=== PATIENT | male | born 1985 | race Two or more races ===

== ENCOUNTER 2021-12-18 16:22 | Emergency (ER) | payer SELFPAY ==
[~2021-12-18] VITALS: Ht 182.9 cm; Wt 93.1 kg
[2021-12-18 16:36] VITALS: BP 136/79
[2021-12-18 17:43] LABS: Basophils # (auto) 0.1 10 ^3/uL (0-0.2); Basophils % (auto) 0.5 % (0.0-2.0); Eosinophils # (auto) 0.2 10 ^3/uL (0-0.8); Eosinophils % (auto) 1.5 % (0.0-7.0); Hematocrit 45.6 % (41.0-53.0); Hemoglobin 15.1 g/dL (13.5-17.5); Lymphocytes # (auto) 2.5 10 ^3/uL (0.4-5.4); Lymphocytes % (auto) 21.7 % (10.0-50.0); Mean Corpuscular Hemoglobin 29.7 pg (28.0-32.0); Mean Corpuscular Hgb Conc. 33.2 g/dL (32.0-36.0); Mean Corpuscular Volume 89.5 fL (80.0-100.0); Monocytes % (auto) 8.2 % (0.0-12.0); Neutrophils % (auto) 68.1 % (37.0-80.0); Red Cell Distribution Width 13.5 % (11.8-14.3); White Blood Cell 11.7 10^3/uL (4.4-10.8)
[2021-12-18 17:51] LABS: Urine Bacteria NONE SEEN /hpf (None Seen); Urine Blood 1+ /uL (Negative); Urine Mucus FEW (None Seen); Urine Specific Gravity 1.018 (1.001-1.035); Urine WBC 73 /hpf (0 - 3)
[2021-12-18 17:51] LABS: Potassium 4.3 mmol/L (3.5-5.1)
[2021-12-18 17:54] LABS: Bilirubin, Total 0.5 mg/dL (0.2-1.0); Total Protein 7.3 g/dL (6.4-8.2)
[2021-12-18] MEDS ORDERED: cefTRIAXone SOD 500 MG VL IM ONE (18:30)
[2021-12-18] MEDS ORDERED: AZITHROMYCIN 250 MG TAB PO ONE (18:30)
[2021-12-18] MEDS ORDERED: ONDANSETRON ODT 4 MG TAB PO ONE (18:30)
[2021-12-18] MEDS ORDERED: CIPR-173 PO (18:30)
[2021-12-18] MEDS ORDERED: DOXY-338 PO (18:30)
[2021-12-18] MEDS ORDERED: KETOROLAC TROMETH 60MG/2ML VIAL IM ONE (18:45)
[2021-12-18] MEDS ORDERED: IOHEXOL 300 MG/ML 100ML BOTTLE IJ ONE (19:53)
== END 2021-12-18 20:30 | disposition left against medical advice (07) ==
LOC: ER 16:22
DX: N45.2 Orchitis (principal); Z53.29 Procedure and treatment not carried out because of patient's decision for other reasons
CPT/HCPCS: 36415; 76870; 80053; 81001; 83605; 85025; 87086; 87491; 87591; 96372; 99284; J1885; Q0162; Q9967; J0696

== ENCOUNTER 2022-10-06 11:18 | Emergency (ER) | payer MEDICAID ==
[~2022-10-06] VITALS: Ht 182.9 cm; Wt 125.3 kg
[~2022-10-06 11:18] MED LIST: CIPR-173 PO; DOXY-447 PO
[2022-10-06 12:35] VITALS: BP 145/84; PULSE 88; RESP 16; TEMP 98.3; O2SAT 97
[2022-10-06] MEDS ORDERED: KETO2CRE4 TOP (13:38)
== END 2022-10-06 13:48 | disposition home or self-care (01) ==
LOC: ER 11:18
DX: B35.4 Tinea corporis (principal); Z79.899 Other long term (current) drug therapy

== ENCOUNTER 2022-12-05 04:41 | Emergency (ER) | payer MEDICAID ==
[~2022-12-05] VITALS: Ht 182.9 cm; Wt 127.0 kg
[2022-12-05 04:41] VITALS: BP 147/81; RESP 16; O2SAT 99
[~2022-12-05 04:41] MED LIST changes: +KETO2CRE4 TOP
[2022-12-05 04:44] VITALS: PULSE 56
[2022-12-05 05:14] LABS: Basophils # (auto) 0.1 10 ^3/uL (0-0.2); Basophils % (auto) 0.9 % (0.0-2.0); Eosinophils # (auto) 0.4 10 ^3/uL (0-0.8); Eosinophils % (auto) 4.5 % (0.0-7.0); Hematocrit 42.9 % (41.0-53.0); Hemoglobin 14.2 g/dL (13.5-17.5); Lymphocytes # (auto) 2.4 10 ^3/uL (0.4-5.4); Lymphocytes % (auto) 29.9 % (10.0-50.0); Mean Corpuscular Hemoglobin 29.1 pg (28.0-32.0); Mean Corpuscular Hgb Conc. 33.2 g/dL (32.0-36.0); Mean Corpuscular Volume 87.6 fL (80.0-100.0); Monocytes # (auto) 0.7 10 ^3/uL (0-1.3); Monocytes % (auto) 8.5 % (0.0-12.0); Neutrophils # (auto) 4.6 10 ^3/uL (1.6-8.6); Neutrophils % (auto) 56.2 % (37.0-80.0); Nucleated Red Blood Cells % 0.1 %; Red Blood Cells 4.89 10^6/uL (4.5-5.90); Red Cell Distribution Width 13.3 % (11.8-14.3); White Blood Cell 8.2 10^3/uL (4.4-10.8)
[2022-12-05 05:28] LABS: Alanine Aminotransferase 51 U/L (7-40); Albumin 4.1 g/dL (3.2-4.8); Alkaline Phosphatase 76 U/L (46-116); Anion Gap 7 (5-15); Aspartate Aminotransferase 21 U/L (13-40); BUN/Creatinine Ratio 9.5 (10.0-20.0); Blood Urea Nitrogen 8 mg/dL (9-23); Calcium 9.2 mg/dL (8.5-10.1); Carbon Dioxide 25 mmol/L (20-30); Chloride 109 mmol/L (98-107); Glucose 134 mg/dL (74-106); Potassium 3.8 mmol/L (3.5-5.1); Sodium 141 mmol/L (136-145)
[2022-12-05 05:29] LABS: Bilirubin, Total 0.3 mg/dL (0.2-1.0); INR 0.96 (0.9-1.15); Partial Thromboplastin Time 26.1 SEC (24.5-34.5); Prothrombin Time 10.1 sec (9.3-11.8); Total Protein 6.5 g/dL (5.7-8.2)
[2022-12-05 05:40] LABS: Magnesium 1.7 mg/dL (1.6-2.6)
== END 2022-12-05 08:03 | disposition left against medical advice (07) ==
LOC: ER 04:41
DX: R07.89 Other chest pain (principal); R06.02 Shortness of breath; Z79.899 Other long term (current) drug therapy; Z53.21 Procedure and treatment not carried out due to patient leaving prior to being seen by health care provider
CPT/HCPCS: 36415; 71045; 80053; 83735; 83880; 84484; 85025; 85610; 85730; 93005